=== PATIENT | male | born 1985 | race Caucasian/White ===

== ENCOUNTER 2018-05-13 18:01 | Emergency (ER) | payer OTHER ==
[~2018-05-13] VITALS: Ht 172.7 cm; Wt 90.7 kg
[~2018-05-13 18:01] MED LIST: CIPROFLOXACIN500 M1 PO; DARVOCET-N 1001 EACH PO; NOHOMEMEDICATIONS
[2018-05-13] MEDS ORDERED: NORCO 5-325 TA1 EACH PO (18:38)
[2018-05-13 18:52] VITALS: BP 132/86
== END 2018-05-13 18:53 | disposition home or self-care (01) ==
LOC: ER 18:01
DX: S62.306A Unspecified fracture of fifth metacarpal bone, right hand, initial encounter for closed fracture (principal); F17.210 Nicotine dependence, cigarettes, uncomplicated; Z88.0 Allergy status to penicillin; Z88.6 Allergy status to analgesic agent; Z88.8 Allergy status to other drugs, medicaments and biological substances; W22.8XXA Striking against or struck by other objects, initial encounter; Y92.89 Other specified places as the place of occurrence of the external cause; Y93.89 Activity, other specified; Y99.8 Other external cause status

== ENCOUNTER 2018-11-01 18:26 | Emergency (ER) | payer OTHER ==
[~2018-11-01] VITALS: Ht 172.7 cm; Wt 88.5 kg
[~2018-11-01 18:26] MED LIST changes: +NORCO 5-325 TA1 EACH PO
[2018-11-01] MEDS ORDERED: NORCO 5-325 TA1 EACH PO (19:21)
[2018-11-01 19:58] VITALS: BP 130/72
== END 2018-11-01 20:00 | disposition home or self-care (01) ==
LOC: ER 18:26
DX: M79.641 Pain in right hand (principal); M79.89 Other specified soft tissue disorders; F17.210 Nicotine dependence, cigarettes, uncomplicated; Z88.0 Allergy status to penicillin; Z88.6 Allergy status to analgesic agent; Z88.8 Allergy status to other drugs, medicaments and biological substances; W01.0XXA Fall on same level from slipping, tripping and stumbling without subsequent striking against object, initial encounter; Y92.89 Other specified places as the place of occurrence of the external cause; Y93.89 Activity, other specified; Y99.8 Other external cause status

== ENCOUNTER 2019-06-16 15:07 | Emergency (ER) | payer OTHER ==
[~2019-06-16] VITALS: Ht 172.7 cm; Wt 90.7 kg
[2019-06-16 15:44] LABS: ABSOLUTE NEUTROPHILS 8.2 thou/uL (1.4-8.2); BASOPHILS 0.3 % (0.0-2.0); EOSINOPHILS 0.2 % (0.0-3.0); HEMATOCRIT 48.8 % (42.0-52.0); HEMOGLOBIN 16.5 gm/dL (14.0-18.0); LYMPHOCYTES 16.5 % (24.0-44.0); MCH 32.4 pg (26.0-34.0); MCHC 33.8 g/dL (28.0-37.0); MONOCYTES 6.4 % (1.0-8.0); PLATELET COUNT 300 thou/uL (150-400); POLYS 76.6 % (36.0-66.0); RBC 5.08 mil/uL (4.50-6.00); RDW 12.9 % (10.5-14.5); WBC 10.8 thou/uL (4.0-11.0)
[2019-06-16 16:05] LABS: CALCIUM 9.4 mg/dL (8.5-10.1); MAGNESIUM 2.1 mg/dL (1.8-2.4); POTASSIUM 3.9 mmol/L (3.5-5.1)
[2019-06-16 16:43] LABS: URINE BLOOD NEGATIVE (Negative); URINE CLARITY CLEAR; URINE COLOR YELLOW; URINE GLUCOSE-RANDOM* NEGATIVE (Negative); URINE KETONES 3+ (Negative); URINE LEUKOCYTES-REFLEX NEGATIVE (Negative); URINE NITRITE-REFLEX NEGATIVE (Negative); URINE PROTEIN (DIPSTICK) TRACE (Negative)
[2019-06-16 16:46] LABS: ICTOTEST (BILI CONFIRMATORY) Negative (Negative); URINE BILIRUBIN NEGATIVE (Negative)
[2019-06-16 17:40] VITALS: BP 122/83
--- NOTE | 2019-06-17 08:00 | EKG ---
[address] [address] ELECTROCARDIOGRAM REPORT Name: TUCKERAYDEE BUNCH Room #: [facility]#: [id number] ������������������ Admission: 06/16/19 ������������������ Attend Phys: Discharge: 06/16/19 ������������������ Date of : 87 Report #: [id number] ����������������������������������������������������������������� [id number] THIS REPORT FOR: //name// [facility] ED Test Date: 2019-06-16 Test Time: 15:42:05 Pat Name: AYDEE TUCKER Department: Room: Gender: M Lead Electrical Controls Engineer: : 1985 Requested By: Antonina Tavarez Order Number: [id number] MD: Jorge Caceres Measurements Intervals [place] Rate: 69 P: -50 FL: 136 QRS: -13 QRSD: 94 T: 27 QT: 409 QTc: 438 Interpretive Statements Sinus or ectopic atrial rhythm No previous ECG available for comparison Electronically Signed On 06-17-2019 8:00:47 CDT by Jorge Caceres [email or web address] ��������������������������������������������� <ELECTRONICALLY SIGNED> ���������������������������������������� By: Jorge Caceres MD ��������������������������������������������� 06/17/19 0800 [id number] MD MIKE Calderón
== END 2019-06-16 17:40 | disposition home or self-care (01) ==
LOC: ER 15:07
PROVIDERS: Emergency Medicine
DX: R55 Syncope and collapse (principal); F17.210 Nicotine dependence, cigarettes, uncomplicated; Z88.0 Allergy status to penicillin; Z88.6 Allergy status to analgesic agent; Z88.8 Allergy status to other drugs, medicaments and biological substances

== ENCOUNTER 2019-11-08 07:53 | Emergency (ER) | payer OTHER ==
[~2019-11-08] VITALS: Ht 172.7 cm; Wt 90.7 kg
[2019-11-08] MEDS ORDERED: TESSALON PERLE100 MG PO (08:35)
[2019-11-08] MEDS ORDERED: ONDANSETRON ODT8 MG PO (08:35)
[2019-11-08] MEDS ORDERED: VENTOLIN HFA 1818 GM INH (09:18)
[2019-11-08 09:55] VITALS: BP 120/76
== END 2019-11-08 09:55 | disposition home or self-care (01) ==
LOC: ER 07:53
DX: J06.9 Acute upper respiratory infection, unspecified (principal); F17.210 Nicotine dependence, cigarettes, uncomplicated; Z88.0 Allergy status to penicillin; Z88.6 Allergy status to analgesic agent; Z88.8 Allergy status to other drugs, medicaments and biological substances

== ENCOUNTER 2019-12-31 20:09 | Emergency (ER) | payer OTHER ==
[~2019-12-31] VITALS: Ht 172.7 cm; Wt 88.5 kg
[~2019-12-31 20:09] MED LIST changes: +ONDANSETRON ODT8 MG PO; +TESSALON PERLE100 MG PO; +VENTOLIN HFA 1818 GM INH
[2019-12-31] MEDS ORDERED: PROMETH-CODEIN 65 ML PO (21:31)
[2019-12-31] MEDS ORDERED: PREDNISONE 20 M20 M1 PO (21:31)
[2019-12-31] MEDS ORDERED: PROAIR HFA8.5 GM INH (21:31)
[2019-12-31 21:52] VITALS: BP 113/74
== END 2019-12-31 21:52 | disposition home or self-care (01) ==
LOC: ER 20:09
DX: J20.9 Acute bronchitis, unspecified (principal); F17.210 Nicotine dependence, cigarettes, uncomplicated; Z88.0 Allergy status to penicillin; Z88.6 Allergy status to analgesic agent; Z88.8 Allergy status to other drugs, medicaments and biological substances

== ENCOUNTER 2020-04-28 05:33 | Emergency (ER) | payer BC, OTHER ==
[~2020-04-28] VITALS: Ht 175.3 cm; Wt 88.9 kg
[~2020-04-28 05:33] MED LIST changes: +PREDNISONE 20 M20 M1 PO; +PROAIR HFA8.5 GM INH; +PROMETH-CODEIN 65 ML PO
[2020-04-28 06:50] LABS: ABSOLUTE NEUTROPHILS 6.2 thou/uL (1.4-8.2); BASOPHILS 0.8 % (0.0-2.0); EOSINOPHILS 1.9 % (0.0-3.0); HEMATOCRIT 45.4 % (42.0-52.0); HEMOGLOBIN 15.6 gm/dL (14.0-18.0); LYMPHOCYTES 16.7 % (24.0-44.0); MCH 34.2 pg (26.0-34.0); MCHC 34.4 g/dL (28.0-37.0); MCV 99.5 fL (80.0-100.0); MONOCYTES 9.3 % (1.0-8.0); PLATELET COUNT 241 thou/uL (150-400); POLYS 71.3 % (36.0-66.0); RBC 4.57 mil/uL (4.50-6.00); RDW 13.1 % (10.5-14.5); WBC 8.7 thou/uL (4.0-11.0)
[2020-04-28 06:54] LABS: URINE BILIRUBIN NEGATIVE (Negative); URINE BLOOD NEGATIVE (Negative); URINE CLARITY CLEAR; URINE COLOR YELLOW; URINE GLUCOSE-RANDOM* NEGATIVE (Negative); URINE KETONES NEGATIVE (Negative); URINE LEUKOCYTES-REFLEX NEGATIVE (Negative); URINE NITRITE-REFLEX NEGATIVE (Negative); URINE PROTEIN (DIPSTICK) NEGATIVE (Negative); URINE SPECIFIC GRAVITY 1.025 (1.005-1.035); URINE UROBILINOGEN 0.2 E.U./dl (0.2-1.0)
[2020-04-28 07:03] LABS: CALCIUM 8.4 mg/dL (8.5-10.1); CREATININE 1.2 mg/dL (0.7-1.3); POTASSIUM 4.6 mmol/L (3.5-5.1)
[2020-04-28 07:05] LABS: APTT 28.3 Seconds (24.5-32.8)
[2020-04-28 07:08] LABS: ALBUMIN 3.3 g/dL (3.4-5.0); DIRECT BILIRUBIN 0.1 mg/dL (<0.1-0.2); TOTAL BILIRUBIN 0.3 mg/dL (0.2-1.0); TOTAL PROTEIN 6.4 g/dL (6.4-8.2)
[2020-04-28] MEDS ORDERED: ZOFRAN ODT4 MG PO (07:26)
[2020-04-28 07:30] VITALS: BP 118/75
--- NOTE | 2020-04-28 07:53 | EKG ---
[facility] [place] [address] ELECTROCARDIOGRAM REPORT Name: ADYEE TUCKER Room #: [facility]#: [id number] Admission: 04/28/20 Attend Phys: Discharge: 04/28/20 Date of : 87 Report #: [id number] THIS REPORT FOR: cc: WAYNE - Preeti family physician/PCP WAYNE - Preeti family physician/PCP Harsh Gerardo MD [facility] THIS REPORT FOR: //name// [facility] ED Test Date: 2020-04-28 Test Time: 05:54:37 Pat Name: AYDEE TUCKER Department: Room: Gender: Army Helicopter Pilot: : 1985 Requested By: Bruce Maldonado Order Number: [id number] MD: Harsh Gerardo Measurements Intervals [place] Rate: 64 P: 43 [place]: 137 QRS: 27 QRSD: 92 T: 34 QT: 424 QTc: 438 Interpretive Statements Sinus rhythm Normal tracing Compared to ECG 06/16/2019 15:42:05 No significant change was found Electronically Signed On 04-28-2020 7:53:33 CDT by Harsh Gerardo [email or web address] <ELECTRONICALLY SIGNED> By: Harsh Gerardo MD, FACC 04/28/20 [id number] [id number] Harsh Gerardo MD, [facility] /EPI
== END 2020-04-28 07:51 | disposition home or self-care (01) ==
LOC: ER 05:33
PROVIDERS: Emergency Medicine
DX: R10.31 Right lower quadrant pain (principal); R11.2 Nausea with vomiting, unspecified; R06.00 Dyspnea, unspecified; M54.9 Dorsalgia, unspecified; R61 Generalized hyperhidrosis; F17.210 Nicotine dependence, cigarettes, uncomplicated; Z98.890 Other specified postprocedural states; Z88.0 Allergy status to penicillin; Z88.8 Allergy status to other drugs, medicaments and biological substances

== ENCOUNTER 2020-07-18 14:43 | Emergency (ER) | payer BC, OTHER ==
[~2020-07-18] VITALS: Ht 172.7 cm; Wt 81.7 kg
[~2020-07-18 14:43] MED LIST changes: +ZOFRAN ODT4 MG PO
[2020-07-18 14:50] VITALS: BP 121/74
[2020-07-18] MEDS ORDERED: DOXYCYCLINE 10100 MG PO (15:01)
== END 2020-07-18 15:34 | disposition home or self-care (01) ==
LOC: ER 14:43
DX: K13.0 Diseases of lips (principal); F17.210 Nicotine dependence, cigarettes, uncomplicated; Z98.890 Other specified postprocedural states; Z88.0 Allergy status to penicillin; Z88.8 Allergy status to other drugs, medicaments and biological substances

== ENCOUNTER 2020-11-30 17:36 | Emergency (ER) | payer BC, OTHER ==
[~2020-11-30] VITALS: Ht 172.7 cm; Wt 86.2 kg
[~2020-11-30 17:36] MED LIST changes: +DOXYCYCLINE 10100 MG PO
[2020-11-30 17:40] VITALS: BP 135/90
[2020-11-30] MEDS ORDERED: BACITRACIN28.4 G1 TOP (17:47)
[2020-11-30] MEDS ORDERED: NORCO 10-325 T1 EACH PO (17:47)
== END 2020-11-30 18:05 | disposition home or self-care (01) ==
LOC: ER 17:36
DX: T20.23XA Burn of second degree of chin, initial encounter (principal); T20.24XA Burn of second degree of nose (septum), initial encounter; T20.26XA Burn of second degree of forehead and cheek, initial encounter; F17.210 Nicotine dependence, cigarettes, uncomplicated; Z79.2 Long term (current) use of antibiotics; Z88.0 Allergy status to penicillin; Z88.8 Allergy status to other drugs, medicaments and biological substances; X12.XXXA Contact with other hot fluids, initial encounter; Y93.89 Activity, other specified; Y92.89 Other specified places as the place of occurrence of the external cause; Y99.8 Other external cause status

== ENCOUNTER 2021-03-09 19:00 | Emergency (ER) | payer BC, OTHER ==
[~2021-03-09] VITALS: Ht 172.7 cm; Wt 86.2 kg
[~2021-03-09 19:00] MED LIST changes: +BACITRACIN28.4 G1 TOP; +NORCO 10-325 T1 EACH PO
[2021-03-09 19:03] VITALS: BP 115/64
== END 2021-03-09 19:43 | disposition home or self-care (01) ==
LOC: ER 19:00
DX: S60.511A Abrasion of right hand, initial encounter (principal); Z88.0 Allergy status to penicillin; Z88.8 Allergy status to other drugs, medicaments and biological substances; F17.210 Nicotine dependence, cigarettes, uncomplicated; W22.8XXA Striking against or struck by other objects, initial encounter; Y93.89 Activity, other specified; Y92.89 Other specified places as the place of occurrence of the external cause; Y99.8 Other external cause status

== ENCOUNTER 2021-03-16 09:35 | Emergency (ER) | payer BC, OTHER ==
[~2021-03-16] VITALS: Ht 172.7 cm; Wt 86.2 kg
[2021-03-16 11:57] VITALS: BP 127/90
== END 2021-03-16 12:16 | disposition home or self-care (01) ==
LOC: ER 09:35
DX: S60.221A Contusion of right hand, initial encounter (principal); F17.210 Nicotine dependence, cigarettes, uncomplicated; Z98.890 Other specified postprocedural states; Z88.0 Allergy status to penicillin; Z88.8 Allergy status to other drugs, medicaments and biological substances; W01.0XXA Fall on same level from slipping, tripping and stumbling without subsequent striking against object, initial encounter; Y93.89 Activity, other specified; Y92.89 Other specified places as the place of occurrence of the external cause; Y99.8 Other external cause status